=== PATIENT | male | born 1970 | race Caucasian/White ===

== ENCOUNTER 2022-08-02 16:02 | Inpatient (IN) | payer OTHER, SELFPAY ==
--- NOTE | 2022-08-02 16:15 | DI.RAD_ITS ---
Exam(s) XR CHEST 2V PA LATERAL EXAM: XR CHEST 2V PA LATERAL CLINICAL HISTORY: Rib FX. TECHNIQUE: 2D digital imaging was performed. COMPARISON: No exams were available for comparison FINDINGS: 2 views: Heart size is normal. The mediastinum is not widened. There is subcutaneous emphysema over the lower right chest and right side of the abdomen. Cannot exc lude rib fractures at this level. There is no pneumothorax. No lung contusions. IMPRESSION: No acute pulmonary findings.Possible right rib fractures. Recommend follow-up right rib views if cli nically indicated. There is no pneumothorax evident. DATA REPOSITORY: RADIATION DOSE DELIVERED:
[2022-08-02 17:53] LABS: Source Nasal/Nares
[2022-08-02 18:00] LABS: HCT 45.4 % (40.0-50.0); MCH 29.9 pg (27.0-33.0); MCHC 35.2 % (32.0-36.0); MCV 85 fL (80-95); MPV 9.1 fL (8.0-11.0); Platelet Count 243 10^3/uL (130-400); RBC 5.35 10^6/uL (4.36-5.78); RDW 12.5 % (11.8-14.1); RDW-SD 38.3 fL; WBC 17.33 10^3/uL (4.4-10.8)
[2022-08-02 18:05] LABS: Anion Gap 8.6 mmol/L (3-11); BUN 16 mg/dL (7-18); CO2 26.4 mmol/L (21.0-32.0); Chloride 103 mmol/L (98-107); Estimated GFR 91.12 (mL/min/1.73m2); Glucose 120 mg/dL (74-106); Potassium 4.4 mmol/L (3.5-5.1); Sodium 138 mmol/L (136-145)
[2022-08-02 18:17] VITALS: BP 138/81; PULSE 72; RESP 18; O2SAT 93
[2022-08-02 18:25] VITALS: BP 138/81; PULSE 72; RESP 18; TEMP 37.7; O2SAT 93
[2022-08-02 18:26] LABS: COVID-19 PCR Negative (Negative)
--- NOTE | 2022-08-02 19:02 | DI.VRAD_ITS ---
PROCEDURE INFORMATION: Exam: XR Chest Exam date and time: 08/02/2022 6:08 PM Age: 52 years old Clinical indication: Injury or trauma; Other: Rib FX TECHNIQUE: Imaging protocol: Radiologic exam of the chest. Views: 2 views. Total images: 2 COMPARISON: CR XR CHEST 1 VW 08/02/2022 3:02 PM FINDINGS: Lungs: Atelectatic changes noted within both lung bases. Pleural spaces: No evidence of pneumothorax. Heart/Mediastinum: Unremarkable. No cardiomegaly. Bones/joints: Question fractures of the lateral aspect of the right 9th and 10th ribs. Further evaluation is recommended. Soft tissues: Subcutaneous emphysematous changes noted within the right lateral soft tissues. IMPRESSION: 1. No evidence of pneumothorax. 2. Atelectatic changes noted within both lung bases. 3. Question fractures of the lateral aspect of the right 9th and 10th ribs. Further evaluation is recommended. 4. Subcutaneous emphysematous changes noted within the right lateral soft tissues. Dictated and Authenticated by: Iraj Luz MD. Ordering:SON Barboza MD
[2022-08-02] MEDS: Ketorolac 15 MG/ML VIAL IVP (19:16)
[2022-08-02] MEDS: Normal Saline Flush 10 ML SYR (19:17)
--- NOTE | 2022-08-02 19:23 | HPE_ITS ---
Date of service: 08/02/22 Time of Service: :23 Assessment and Plan Assessment and plan (1) Rib fractures: Status: Acute Assessment and plan: 52M with ninth and 10th right posterior rib fractures after fall from standing. Outside imaging showed small pneumothorax that is not appreciable on chest x-ray here. Moving air well and good saturations without supplemental oxygen. Repeat chest x-ray in the morning. He needs adequate pain control. Starting with scheduled Tylenol, Toradol, gabapentin as well as as needed oxycodone and Dilaudid. If his pain is not well enough controlled for him to mobilize freely tomorrow I will add 10 mg twice daily of oxycontin. I doubt he will need this. History of Present Illness History of Present Illness Chief Complaint: I fell Narrative: 52-year-old gentleman transferred from [facility] with right-sided rib fractures and small right-sided pneumothorax after fall from standing and hitting his right chest on a tree stump. He did not hit his head. No loss of consciousness. CT scan was performed of the chest and was normal other than small anterior pneumothorax on the right. I do not have access to chest x-ray images from here through the system but have not sent to me by telephone which (although difficult to read) does have what I think is an appreciable right-sided pneumothorax. Here is hemodynamically stable with oxygen saturations in the high 90swithout oxygen. A chest x-ray here does not show pneumothorax. Moderate distress with significant right sided chest discomfort and subcutaneous emphysema. Moving air well. Review of Systems Narrative: 12 point review of systems was performed and is unremarkable other than as above PFSH All Active Problems (Updated 08/02/22 @ 19:28 by Tamra Barajas IV, MD) Rib fractures (Acute) Social History Smoking/Tobacco Use Status: Never Smoking risk assessment performed?: Yes Alcohol Intake: current Alcohol Intake frequency: 0-2 drinks per day Alcohol type: beer Drug use: Never Substance use type: does not use Do you feel safe at home: Yes Do you feel safe in your relationship?: Yes Meds Allergies and Home Medications Home Medications Medication Instructions Recorded Confirmed Type simvastatin 20 mg tablet 20 mg PO QHS 08/02/22 08/02/22 History Exam Resp Effort & Inspection: normal respiratory effort and able to speak in complete sentences Other: Significant discomfort right inferior posterior hemithorax with subcutaneous air Cardio Rate: regular rate Rhythm: regular rhythm GI Inspection: normal to inspection Palpation: soft Neuro General: patient alert, patient awake and patient oriented x3 Extrem General: full ROM Results Imaging Chest x-ray: report reviewed and image reviewed Labs 08/02/22 17:45 08/02/22 17:45 Labs: Laboratory Results - last 24 hr 08/02/22 08/02/22 08/02/22 17:45 17:45 17:45 WBC 17.33 H RBC 5.35 Hgb 16.0 Hct 45.4 MCV 85 MCH 29.9 MCHC 35.2 RDW 12.5 Plt Count 243 MPV 9.1 Sodium 138 Potassium 4.4 Chloride 103 Carbon Dioxide 26.4 Anion Gap 8.6 BUN 16 Creatinine 1.0 Est GFR (CKD-EPI 2020) 91.12 Glucose 120 H Calcium 9.0 COVID-19 Source Nasal/Nares SARS-CoV-2 (PCR) Negative Last Vital Signs Temp 37.7 C H 08/02/22 18:25 Pulse 72 08/02/22 18:25 Resp 18 08/02/22 18:25 BP 138/81 08/02/22 18:25 Pulse Ox 93 08/02/22 18:25 Time Spent Time spent with Patient: <40 minutes Time was spent: preparing to see the patient(eg.review tests), obtaining and/or reviewing separately otained hiistory, ordering medications,tests, procedures, indepentently interpreting results and counseling the patient
[2022-08-02] MEDS: Gabapentin 300 MG CAP PO (19:55)
[2022-08-02 23:26] VITALS: BP 119/70; PULSE 65; RESP 16; TEMP 36.6; O2SAT 98
[2022-08-03] MEDS: Normal Saline Flush 10 ML SYR IVP ×5 (00:34→18:17)
[2022-08-03] MEDS: Ketorolac 15 MG/ML VIAL IVP ×4 (00:34→18:17)
[2022-08-03] MEDS: Lactated Ringers 1,000 ML 100 ML IV (01:45)
[2022-08-03 03:53] VITALS: BP 119/70; PULSE 65; RESP 16; TEMP 36.8; O2SAT 96
--- NOTE | 2022-08-03 07:00 | DI.RAD_ITS ---
Exam(s) XR CHEST 2V PA LATERAL EXAM: XR CHEST 2V PA LATERAL CLINICAL HISTORY: RIB FX TECHNIQUE: 2D digital imaging was performed of the chest. Two images were obtained. PA and lateral views were obtained. COMPARISON: CR XR CHEST 1 VW from 08/02/2022 CR,XR XR CHEST 2V PA LATERAL from 08/02/2022 FINDINGS: MEDIASTINUM: Normal. HEART: Normal. PULMONARY VASCULATURE: Normal. LUNGS: Clear. PLEURAL SPACE: There is a small right apical pneumothorax. It is visualized between the posterior as pects of the right 3rd and 4th ribs. BONE:Within normal limits for the patient's age. No displaced rib fractures are seen, however, there was a suggestion on the prior examination of fractures involving the right 9th and 10th ribs. OTHER FINDINGS:Subcutaneous emphysema along the right lateral chest wall. IMPRESSION: 1. Small right apical pneumothorax. 2. Findings were discussed with Dr. Barajas at 11:20 a.m. on 08/03/2022. DATA REPOSITORY: RADIATION DOSE DELIVERED:
[2022-08-03 07:30] VITALS: BP 144/84; PULSE 60; RESP 16; TEMP 35.9; O2SAT 97
[2022-08-03] MEDS: Gabapentin 300 MG CAP PO ×3 (07:46→20:00)
[2022-08-03] MEDS: Polyethylene Glycol 3350 17 GM PACKET PO (07:46)
--- NOTE | 2022-08-03 10:14 | W.PM.PROGNOT ---
Date of Service Date of service: 08/03/22 Time of Service: 10:14 Assessment and Plan Assessment and plan (1) Rib fractures: Status: Acute Assessment and plan: 52M mechanical fall from standing with RIGHT rib fx x2 and OSH CT showing PTX No PTX on CXR here x2 Good aeration and sats good without O2 IS 1500 Pain controlled Home tomorrow with PO analgesia Objective Last Vital Signs Temp 35.9 C L 08/03/22 07:30 Pulse 60 08/03/22 07:30 Resp 16 08/03/22 07:30 BP 144/84 H 08/03/22 07:30 Pulse Ox 97 08/03/22 07:30 Laboratory Results - last 24 hr 08/02/22 08/02/22 08/02/22 17:45 17:45 17:45 WBC 17.33 H RBC 5.35 Hgb 16.0 Hct 45.4 MCV 85 MCH 29.9 MCHC 35.2 RDW 12.5 Plt Count 243 MPV 9.1 Sodium 138 Potassium 4.4 Chloride 103 Carbon Dioxide 26.4 Anion Gap 8.6 BUN 16 Creatinine 1.0 Est GFR (CKD-EPI 2020) 91.12 Glucose 120 H Calcium 9.0 COVID-19 Source Nasal/Nares SARS-CoV-2 (PCR) Negative Time Spent with Patient Time Spent with Patient: <25 minutes Time was spent: preparing to see the patient(eg.review tests), indepentently interpreting results and counseling the patient
--- NOTE | 2022-08-03 11:58 | INITIAL_ITS ---
- If Service Date Differs Date of service: 08/03/22 Time of Service: 11:59 Care Management Initial Assess REASON FOR HOSPITALIZATION:: Rib fracture PAST MEDICAL HISTORY/PAST SURGICAL HISTORY:: Medical history limited, patient not local. PREVIOUS FUNCTIONAL STATUS/SOCIAL/FAMILY SUPPORTS:: Kale lives in [place] with his , Debbie. 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 CURRENT FUNCTIONAL STATUS:: Kale was sitting up in bed visiting with his sister when CM met with him. He stated that he is feeling ok, and that his pain has been well controlled today. He reported that per MD, he will likely return home tomorrow if he continues to improve, and his oxygen saturation remains stable. He stated that he has a small pneumothorax, which is being closely monitored, as well as two broken ribs. He stated that he was at work when he was injured, and he planned to call the HR department of his employer in order to open a worker's compensation claim. He stated that his boss is very supportive, and visited him earlier today. He is agreeable with the plan to discharge home tomorrow, as long as his pain is well managed, and his breathing is not labored. CM will continue to follow. ADVANCE DIRECTIVES:: Not on file at [facility]. Has patient been provided with info about the portal/API?: Yes Did the patient sign up for the portal?: No CODE STATUS:: Full Code INSURANCE COVERAGE / FINANCIAL ISSUES:: BC/BS CURRENT HOME/COMMUNITY SERVICES/EQUIPMENT:: No services or equipment. PRIMARY CARE PHYSICIAN:: Kale previously had Dr. Heck as a PCP, who is now retired. CM will contact [facility] Primary Care at the [facility] office ([phone]) to determine if he is still a patient at their facility. POTENTIAL DISCHARGE NEEDS:: Evaluation for further needs, follow up appointments. PATIENT/FAMILY EDUCATION NEEDS:: Review discharge instructions including limitations, discussion of self care needs including ask me three. ANTICIPATED BARRIERS TO DISCHARGE:: None identified at this time. TRANSPORTATION:: Via private vehicle by his . PLAN:: Anticipate Kale will return home when medically cleared. His will drive him home via private vehicle. He will follow up with his PCP and discharge plan of care. CM will continue to follow.
[2022-08-03 15:24] VITALS: BP 155/79; PULSE 74; RESP 16; TEMP 37.4; O2SAT 96
--- NOTE | 2022-08-03 16:15 | DI.RAD_ITS ---
Exam(s) XR CHEST 2V PA LATERAL EXAM: XR CHEST 2V PA LATERAL CLINICAL HISTORY: assess pneumo TECHNIQUE: 2D digital imaging was performed of the chest. Two images were obtained. PA and lateral views were obtained. COMPARISON: CR XR CHEST 2V PA LATERAL from 08/03/2022 FINDINGS: MEDIASTINUM: Normal. HEART: Normal. PULMONARY VASCULATURE: Normal. LUNGS: Clear. PLEURAL SPACE: There is a stable small right apical pneumothorax. No left pneumothorax. No pleural effusion. BONE:Within normal limits for the patient's age. OTHER FINDINGS:There is persistent subcutaneous emphysema along the right lateral chest wall. IMPRESSION: Stable right apical pneumothorax. DATA REPOSITORY: RADIATION DOSE DELIVERED:
--- NOTE | 2022-08-03 16:20 | CHAPLAIN ---
I had a brief visit with Kale this morning. He was sitting up in bed and visiting with two people. I explained my role and offered support.
[2022-08-03 19:26] VITALS: BP 142/74; PULSE 77; RESP 16; TEMP 36.6; O2SAT 94
[2022-08-03 23:08] VITALS: BP 154/82; PULSE 66; RESP 15; TEMP 36.8; O2SAT 96
[2022-08-04] MEDS: Ketorolac 15 MG/ML VIAL IVP ×2 (00:11→05:29)
[2022-08-04] MEDS: Normal Saline Flush 10 ML SYR IVP (05:29)
[2022-08-04 07:30] VITALS: BP 137/86; PULSE 65; RESP 18; TEMP 36.7; O2SAT 96
[2022-08-04] MEDS: Gabapentin 300 MG CAP PO (08:10)
[2022-08-04] MEDS: Polyethylene Glycol 3350 17 GM PACKET PO (08:10)
--- NOTE | 2022-08-04 08:39 | W.PM.DS.N ---
Date of service: 08/04/22 Time of Service: 08:39 DS: Diagnosis Discharge Diagnosis (1) Rib fractures: Status: Acute Discharge Plan Disposition Patient Disposition: Home Condition: Good Discharge Details Reason For Visit: Rib FX Admit Date/Time: 08/02/22 16:02 Admit Provider: Tamra Barajas IV Attending Provider: Tamra Barajas IV Primary Care Provider: Bertrand Heck Hospital Course Hospital Course: Transferred from outside hospital with 2 rib fractures on the right with tiny apical pneumothorax which has remained stable. Pain very well controlled without narcotics.. Home Meds and New Rx's Prescriptions: New acetaminophen [Acetaminophen Pain Relief] 500 mg tablet 500 mg PO Q6H Qty: 20 0RF ibuprofen 400 mg tablet 400 mg PO Q8H Qty: 12 0RF gabapentin 300 mg capsule 300 mg PO TID Qty: 12 0RF oxycodone 5 mg capsule 5 mg PO Q8H PRNQty: 7 0RF docusate sodium [Colace] 100 mg capsule 100 mg PO DAILY Qty: 7 0RF No Action simvastatin 20 mg Tablet 20 mg PO QHS Discharge Instructions Activity:: Activity as Tolerated Equipment/Supplies:: No Equipment Needed Diet:: Normal Diet Discharge Data Discharge Date/Time-TO BE ENTERED AT DEPARTURE: 08/04/22 08:39 DS: Summary Time Spent with Patient providing and/or coordinating discharge services: Greater than 30 minutes Status at Discharge Functional status at discharge: independent ambulation Overall status at discharge: patient is not back to baseline Mental Status: mental status grossly normal Speech and Movement: speech and movement normal Mood: congruent mood Affect: normal affect Exam Psych Mental Status: mental status grossly normal Speech and Movement: speech and movement normal Mood: congruent mood Affect: normal affect DS: Data Vitals/I&O Vitals and I&O: Vital Signs Temperature 36.8 C 08/03/22 23:08 Temperature Source Tympanic 08/03/22 23:08 Pulse 66 08/03/22 23:08 Pulse Rhythm Regular 08/04/22 01:56 Respiratory Rate 15 08/03/22 23:08 Respiratory Effort Normal, Non-Labored 08/04/22 01:56 Respiratory Depth Normal 08/04/22 01:56 Respiratory Pattern Normal 08/04/22 01:56 Blood Pressure 154/82 H 08/03/22 23:08 Pulse Oximetry 96 08/03/22 23:08 Oxygen Delivery Method Room Air 08/03/22 23:08 Oxygen Flow Rate 0 08/03/22 23:08 Pain Level 3 08/04/22 05:29 Intake & Output 08/03/22 08/03/22 08/04/22 11:59 23:59 11:59 Intake Total 1381.667 / 2171.667 790 / 2171.667 Balance 1381.667 / 2171.667 790 / 2171.667 Intake: IV 901.667 / 911.667 10 911.667 Oral 480 / 1260 780 / 1260 Other: Urine Appearance Clear Comment pt used bathroom independently pt reports voiding x3 PFSH All Active Problems (Updated 08/02/22 @ 19:28 by Tamra Barajas IV, MD) Rib fractures (Acute) Social History Smoking/Tobacco Use Status: Never Smoking risk assessment performed?: Yes Alcohol Intake: current Alcohol Intake frequency: 0-2 drinks per day Alcohol type: beer Drug use: Never Substance use type: does not use Do you feel safe at home: Yes Do you feel safe in your relationship?: Yes Time Spent with Patient Time Spent with Patient: <45 minutes Time was spent: preparing to see the patient(eg.review tests), obtaining and/or reviewing separately otained hiistory and counseling the patient
[2022-08-04] MEDS: Milk of Magnesia 30 ML CUP 60 ML PO (09:27)
--- NOTE | 2022-08-04 11:37 | CMDISCH_ITS ---
- If Service Date Differs Date of service: 08/04/22 Time of Service: 11:37 LACE Index Scoring Tool - Questions: Length of Stay (in days): 2 Acuity (Admit via E.D.?): No E.D. Visits: 0 - Answers: Total Score: 2 Risk of Readmission: Low Risk Care Management Discharge Reason for Hospitalization: Rib fracture Discharge Plan: Kale returned home today with no new services. His sister drove him home via private vehicle. CM provided a letter verifying the dates of his inpatient stay. CM informed Access that this stay will be part of a Worker's Compensation claim, through his employer, the [employer], and their insurance plan is through [employer]. Kale will follow up with [facility] primary care in [place], who already called him to schedule his appointment prior to him leaving [facility]. He will follow his discharge plan of care. He is happy to be going home. Patient/Family Education Needs: Review discharge instructions and limitations, discussion of self care needs including ask me three.
== END 2022-08-04 10:15 | disposition home or self-care (01) | DRG 200 ==
PROVIDERS: Admitting Provider Surgery; PCP Family Medicine; Visit Provider Surgery
DX: S27.0XXA Traumatic pneumothorax, initial encounter (principal); S22.41XA Multiple fractures of ribs, right side, initial encounter for closed fracture; T79.7XXA Traumatic subcutaneous emphysema, initial encounter; W18.39XA Other fall on same level, initial encounter; W22.09XA Striking against other stationary object, initial encounter; Y99.0 Civilian activity done for income or pay
CPT/HCPCS: 80048; 85027; 87635; 71046; J1885